=== PATIENT | female | born 1985 | race Two or more races ===

== ENCOUNTER → 2024-08-04 | Outpatient (CLI) | payer BC, SELFPAY ==
[2024-08-04 10:23] LABS: Basophils # (Auto) 0.1 Thou/mm3 (0.0-0.2); Basophils % (Auto) 1 % (0-2.5); Eosinophils # (Auto) 0.1 Thou/mm3 (0.0-0.5); Eosinophils % (Auto) 1 % (0-10); Hematocrit 40.6 % (36.0-46.0); Hemoglobin 13.5 g/dL (12.0-16.0); Immature Granulocytes % (Auto) 0 % (0-0); Immature Granulocytes Auto 0.02 Thou/mm3 (0.00-0.00); Lymphocytes # (Auto) 2.1 Thou/mm3 (1.0-4.8); Lymphocytes % (Auto) 32 % (10-50); Mean Corpuscular HGB Conc 33.3 g/dl (31.0-37.0); Mean Corpuscular Volume 90 fL (80-100); Monocytes # (Auto) 0.5 Thou/mm3 (0.0-0.8); Monocytes % (Auto) 8 % (0-12); Neutrophils # (Auto) 3.8 Thou/mm3 (1.8-7.7); Neutrophils % (Auto) 58 % (37-80); Nucleated Red Blood Cell % 0 /100 WBC (0); Platelet Count 259 Thou/mm3 (140-440); RDW Standard Deviation 41.6 fL (36.4-46.3); White Blood Count 6.5 Thou/mm3 (3.6-11.0)
[2024-08-04 10:34] LABS: Alanine Aminotransferase 62 U/L (10-49); Albumin, Serum 4.6 gm/dL (3.5-5.0); Albumin/Globulin Ratio 1.6 (1.2-2.2); Alkaline Phosphatase 91 U/L (46-116); Anion Gap 8 (7-16); Aspartate Amino Transferase 27 U/L (0-34); BUN/Creatinine Ratio 18 Ratio (12-20); Beta HCG,Quantitative 1 mIU/mL (<5.0); Bilirubin,Total 0.8 mg/dL (0.3-1.2); Blood Urea Nitrogen 11 mg/dL (9-23); Calcium 9.5 mg/dL (8.3-10.6); Calcium (Corrected) 9.5 mg/dL (8.5-10.1); Carbon Dioxide 27.3 mMol/L (20.0-31.0); Chloride 103 mMol/L (98-107); Creatinine (Component) 0.6 mg/dL (0.6-1.3); Globulin 2.8 gm/dL (2.3-3.5); Glucose 102 mg/dL (74-106); Osmolality,Calculated 275 (275-295); Potassium 4.3 mMol/L (3.4-5.1); Sodium 138 mMol/L (136-145); Total Protein 7.4 gm/dL (5.7-8.2); eGFR > 60 See Note
== END | disposition home or self-care (01) ==
LOC: COPL 09:15
PROVIDERS: PCP Family Medicine; Referring Provider Internal Medicine; Visit Provider Internal Medicine
DX: R10.9 Unspecified abdominal pain (principal)
CPT/HCPCS: 36415; 80053; 84702; 85025

== ENCOUNTER → 2024-08-11 | Outpatient (CLI) | payer BC, SELFPAY ==
--- NOTE | 2024-08-11 08:45 | XR_ITS ---
Examination: Abdomen sonogram, complete Date and time of exam: August 11, 2024 0909 hours INDICATIONS: Right upper abdominal pain beginning one month ago. Technique: Multiple real-time grayscale transabdominal sonographic images of the abdomen have been obtained. Findings: Normal gallbladder. Normal common bile duct 0.2 cm Pancreatic head 2.0 cm Aorta not enlarged. Liver 16.5 cm fatty infiltration smooth contour no focal liver lesions Normal hepatopedal portal venous flow Patent IVC Right kidney 11.9 x 5.0 x 4.6 cm renal cortex 1.8 cm Left kidney 11.5 x 4.2 x 4.2 cm renal cortex 1.9 cm Mild bilateral renal parenchymal scar formation Spleen 10.6 cm IMPRESSION: Normal gallbladder Mild hepatomegaly fatty liver
== END | disposition home or self-care (01) ==
LOC: CDIM 08:35
PROVIDERS: Referring Provider Internal Medicine; Visit Provider Internal Medicine
DX: K76.0 Fatty (change of) liver, not elsewhere classified (principal)
CPT/HCPCS: 76700

== ENCOUNTER → 2024-09-30 | Outpatient (CLI) | payer BC, SELFPAY ==
[2024-09-30 16:57] LABS: HCG Qualitative,Urine Negative
== END | disposition home or self-care (01) ==
LOC: SLDO 15:39
PROVIDERS: Referring Provider Radiology Diagnostic Radiology; Visit Provider Radiology Diagnostic Radiology
DX: Z32.00 Encounter for pregnancy test, result unknown (principal)
CPT/HCPCS: 81025

== ENCOUNTER → 2024-10-01 | Outpatient (CLI) | payer BC, SELFPAY ==
--- NOTE | 2024-10-01 14:37 | XR_ITS ---
Examination: CT abdomen without intravenous contrast. Coronal 2-D reconstructions. Sagittal 2-D reconstructions. Date and time of exam:October 01, 2024 1548 hours INDICATIONS: Right upper abdominal pain left upper abdominal pain beginning 6 months ago CTDI: vol (mGy): 8.88 DLP: (mGycm): The Technique: Axial images of the abdomen have been obtained, 3 mm slice thickness, abdomen without intravenous contrast 2-D sagittal coronal reconstructions Low dose protocols were performed. One or more of the following dose reduction techniques were used; automated exposure control, adjustment of the mA and/or KV according to patient size, use of iterative reconstruction technique. Findings: Severe diffuse fatty infiltration throughout the liver no focal liver lesions No gallstones Spleen not enlarged No pancreatic or adrenal mass No renal or ureteral calculi, no hydronephrosis Aorta normal size Normal appendix Partial visualization enlarged fundus of uterus IMPRESSION: Severe diffuse fatty infiltration throughout the liver Partial visualization large fundus of uterus, consider pelvic sonography follow-up
== END | disposition home or self-care (01) ==
PROVIDERS: PCP Internal Medicine; Referring Provider Internal Medicine; Visit Provider Internal Medicine
DX: K76.0 Fatty (change of) liver, not elsewhere classified (principal)
CPT/HCPCS: 74150

== ENCOUNTER → 2024-11-17 | Outpatient (CLI) | payer BC, SELFPAY ==
[2024-11-17 09:49] LABS: Basophils # (Auto) 0.1 Thou/mm3 (0.0-0.2); Basophils % (Auto) 1 % (0-2.5); Eosinophils # (Auto) 0.1 Thou/mm3 (0.0-0.5); Eosinophils % (Auto) 1 % (0-10); Hematocrit 41.4 % (36.0-46.0); Hemoglobin 13.9 g/dL (12.0-16.0); Immature Granulocytes % (Auto) 0 % (0-0); Immature Granulocytes Auto 0.02 Thou/mm3 (0.00-0.00); Lymphocytes # (Auto) 2.2 Thou/mm3 (1.0-4.8); Lymphocytes % (Auto) 33 % (10-50); Mean Corpuscular HGB Conc 33.6 g/dl (31.0-37.0); Mean Corpuscular Hemoglobin 30.4 pg (25.0-35.0); Mean Corpuscular Volume 91 fL (80-100); Monocytes # (Auto) 0.5 Thou/mm3 (0.0-0.8); Monocytes % (Auto) 7 % (0-12); Neutrophils % (Auto) 58 % (37-80); Nucleated Red Blood Cell % 0 /100 WBC (0); Platelet Count 263 Thou/mm3 (140-440); RDW Standard Deviation 42.4 fL (36.4-46.3); Red Blood Count 4.57 Miln/mm3 (4.00-5.20); White Blood Count 6.8 Thou/mm3 (3.6-11.0)
[2024-11-17 09:59] LABS: Glucose Estimated Average 100 mg/dL (80-131); Hemoglobin A1C 5.1 % Hgb (4.8-6.0)
[2024-11-17 10:40] LABS: Anion Gap 8 (7-16); Blood Urea Nitrogen 11 mg/dL (9-23); Carbon Dioxide 25.5 mMol/L (20.0-31.0); Chloride 105 mMol/L (98-107); Creatinine (Component) 0.6 mg/dL (0.6-1.3); Potassium 4.4 mMol/L (3.4-5.1); Sodium 138 mMol/L (136-145)
[2024-11-17 10:41] LABS: Alanine Aminotransferase 18 U/L (10-49); Albumin, Serum 4.4 gm/dL (3.5-5.0); Albumin/Globulin Ratio 1.6 (1.2-2.2); Alkaline Phosphatase 88 U/L (46-116); Aspartate Amino Transferase 15 U/L (0-34); BUN/Creatinine Ratio 18 Ratio (12-20); Bilirubin,Total 0.6 mg/dL (0.3-1.2); Calcium 9.1 mg/dL (8.3-10.6); Calcium (Corrected) 9.1 mg/dL (8.5-10.1); Cardiac Risk Estimate 5.6 RATIO (3.7-5.6); Cholesterol 235 mg/dL (132-200); Globulin 2.7 gm/dL (2.3-3.5); Glucose 98 mg/dL (74-106); HDL Cholesterol 42 mg/dL (40-60); LDL Cholesterol,Calculated 170 mg/dL (0-130); Osmolality,Calculated 275 (275-295); Total Protein 7.1 gm/dL (5.7-8.2); Triglycerides 115 mg/dL (30-150); eGFR > 60 See Note
== END | disposition home or self-care (01) ==
LOC: COPL 08:53
PROVIDERS: PCP Student in an Organized Health Care Education/Training Program; Referring Provider Student in an Organized Health Care Education/Training Program; Visit Provider Student in an Organized Health Care Education/Training Program
DX: F41.1 Generalized anxiety disorder (principal); K76.0 Fatty (change of) liver, not elsewhere classified
CPT/HCPCS: 36415; 80053; 80061; 83036; 85025

== ENCOUNTER → 2024-11-26 | Outpatient (CLI) | payer BC, SELFPAY ==
--- NOTE | 2024-11-26 12:30 | XR_ITS ---
Examination: Pelvic ultrasound, transabdominal, complete Technique: Transabdominal ultrasound of the pelvis performed using grayscale imaging Date and time of exam: November 26, 2024 1248 hours INDICATIONS: Pelvic discharge several years, large fundus of uterus on CT examination September FINDINGS: Uterus 7.8 cm uterine fundal mass 6.6 x 6.6 x 5.4 cm Intrauterine device satisfactory position Endometrial stripe 0.85 cm Right ovary 3.0 cm arterial flow Left ovary obscured by bowel gas IMPRESSION: Recommend transvaginal pelvic sonography to assess large exophytic uterine fundal mass
== END | disposition home or self-care (01) ==
LOC: CDIM 12:34
PROVIDERS: PCP Student in an Organized Health Care Education/Training Program; Referring Provider Student in an Organized Health Care Education/Training Program; Visit Provider Student in an Organized Health Care Education/Training Program
DX: R19.09 Other intra-abdominal and pelvic swelling, mass and lump (principal)
CPT/HCPCS: 76856

== ENCOUNTER → 2024-12-17 | Outpatient (BNVA) | payer BC, SELFPAY | END | disposition home or self-care (01) | PROVIDERS: PCP Internal Medicine; Referring Provider Internal Medicine; Visit Provider Urology | DX: G89.4 Chronic pain syndrome (principal); Z87.440 Personal history of urinary (tract) infections | CPT/HCPCS: 81003; 99212; G0463 ==

== ENCOUNTER 2025-03-24 08:45 | Day surgery (SDC) | payer BC, SELFPAY ==
[2025-03-23 12:45] VITALS: BMI 30.6
[2025-03-23 15:17] LABS: HCG Qualitative,Urine Negative
--- NOTE | 2025-03-23 15:24 | SUR.PREOP ---
Pt's notified to bring pt at 0900.
[2025-03-24] VITALS (7 sets, daily range): BP systolic 107–139; BP diastolic 70–81; PULSE 67–84; RESP 12–18; TEMP 36.3–36.5; O2SAT 95–100; BMI 30.5
[2025-03-24] MEDS: RINGERS LACTATED 1000 ML 1,000 ML 20 ML IV (09:19)
--- NOTE | 2025-03-24 12:42 | SUR.PHASEI ---
pt received from OR in recovery bay 5. pt asleep but responds to voice, breathing unlabored on oxymask 6l. v/s stable. pt has simpson catheter in place. report received from Donald Barnes and Shay SEAY.
--- NOTE | 2025-03-24 12:44 | ESOP_ITS ---
Surgeon Rama Allen MD Surgical Staff Operation Date: 03/24/25 11:15 <No data on this case meets the specified criteria>
--- NOTE | 2025-03-24 12:45 | ESOP_ITS ---
Date of Procedure 03/24/25 Pre Op Diagnosis Chronic pelvic pain syndrome, urethral stenosis, recurrent urinary tract infection, rule out interstitial cystitis Post Op Diagnosis Same severe urethral stenosis, bladder neck polyps, Procedure Cystoscopic examination, urethral dilation, Tyl[place] dilation for diagnostic and therapeutic purposes, fulguration of bladder neck polyps, insertion of Gunn catheter Findings Severe urethral stenosis, bladder neck polyps Procedure Description Indication for procedure this is a 40-year-old female who is seen in urology office she has slow urinary stream incomplete bladder emptying bladder pain. She was recommended cystoscopy urethral dilation T[place]erton dilation for diagnostic and therapeutic purposes rule out interstitial cystitis possible bladder biopsy and fulguration procedure and complications were discussed with the patient in great detail informed consent is obtained Patient was brought to the operating room in a satisfactory condition after appropriate premedication she was appropriately identified by surgeon and operating room staff site scope and indications of the procedure were reconfi rmed with the patient Patient was positioned on the operating table in a supine position. General anesthesia was given uneventfully patient was positioned in the dorsolithotomy position The patient received 160 mg Gentamicin IM pre-op prophylaxis. . The patient was prepped in a sterile manner. Local anesthetic was placed in the urethra. Cystoscopy was then performed. She had severe urethral stenosis urethral dilation was done up to 30 Dutch the urethra had no intrinsic lesions. Examination of the bladder revealed no evidence of cancerous lesions, papillary or polyp type, lesions or stones. Bladder was filled with 350 cc of water cystoscopy was done again no evidence of interstitial cystitis was identified both ureters were putting out clear urine. There were bladder neck polyps, infection can cause polyps and polyps can cause infections fulguration was done the urethra . The bladder was completely drained and the scope was removed. 20 Dutch Gunn catheter was inserted balloon was inflated with the 10 cc of water the patient tolerated the procedure well. Post-op instructions were given. The patient is to call the office should any problems occur. Follow-up appointment in urology office is given Anesthesia GETA Pathology / specimen None Estimated Blood Loss 0.2 Condition Stable Disposition PACU Surgeon Rama Allen MD Surgical Staff Operation Date: 03/24/25 11:15 <No data on this case meets the specified criteria>
--- NOTE | 2025-03-24 13:50 | SUR.PHASEII ---
pt awake and alert, breathing unlabored on room air. v/s stable. pt simpson catheter in place connected to leg bag. pt able to ambulate to wheelchair with steady gait. d/c instructions given with Desean in room, all questions answered. pt d/c via wheelchair with all belongings.
== END 2025-03-24 13:50 | disposition home or self-care (01) ==
PROVIDERS: Anesthesiology; PCP Internal Medicine; Referring Provider Urology; Visit Provider Urology
PROC: 0T7B8ZZ Dilation of Bladder, Via Natural or Artificial Opening Endoscopic (ICD-10-PCS; CPT 52214; principal; 2025-03-24 11:00)
DX: D41.4 Neoplasm of uncertain behavior of bladder (principal); N35.92 Unspecified urethral stricture, female; Z87.440 Personal history of urinary (tract) infections
CPT/HCPCS: 52214; 81025; A4217; A4649; J0131; J1580; J1885; J2250; J2704; J3010; J3490; J7120

== ENCOUNTER → 2025-04-13 | Outpatient (CLI) | payer BC, SELFPAY ==
[2025-04-14 10:39] LABS: BVAG Candida Negative (Negative); Bacterial Vaginosis Markers Negative (Negative); Candida glabrata Negative (Negative); Candida krusei PCR Negative (Negative); Trichomonas Negative (Negative)
== END | disposition home or self-care (01) ==
LOC: SLDO 14:51
PROVIDERS: Referring Provider Specialist; Visit Provider Specialist
DX: B37.89 Other sites of candidiasis (principal); A59.01 Trichomonal vulvovaginitis; N76.0 Acute vaginitis
CPT/HCPCS: 81514